=== PATIENT | female | born 1965 | race Caucasian/White ===

== ENCOUNTER → 2016-11-10 | Outpatient (CLI) | payer BC | LOC: KOH-I 11-09 09:00 | DX: R10.84 Generalized abdominal pain (principal); K58.1 Irritable bowel syndrome with constipation; R11.0 Nausea; K76.0 Fatty (change of) liver, not elsewhere classified | CPT/HCPCS: 76700 ==

== ENCOUNTER → 2016-12-14 | Outpatient (CLI) | payer BC | LOC: US 11:00 | DX: R93.5 Abnormal findings on diagnostic imaging of other abdominal regions, including retroperitoneum (principal) ==

== ENCOUNTER → 2020-07-17 | Outpatient (CLI) | payer BC ==
[~2020-07-17] MED LIST: IBUPROFEN800 MG PO
== END ==
LOC: KOH-I 13:55
DX: R06.02 Shortness of breath (principal)
CPT/HCPCS: 71046

== ENCOUNTER 2020-11-07 16:55 | Emergency (ER) | payer BC ==
[2020-11-07 18:30] LABS: HEMOGLOBIN 14.8 gm/dl (12.3-15.3); RED BLOOD COUNT 4.81 M/UL (4.00-5.10); WHITE BLOOD COUNT 10.3 K/UL (4.5-11.0)
[2020-11-07 18:41] LABS: BUN/CREATININE RATIO 16 (0-10)
[2020-11-07] MEDS ORDERED: IBUPROFEN800 MG PO (20:36)
== END 2020-11-07 20:45 | disposition home or self-care (01) ==
LOC: ER1 16:55
PROVIDERS: Preventive Medicine Occupational Medicine
DX: M94.0 Chondrocostal junction syndrome [Tietze] (principal); F17.210 Nicotine dependence, cigarettes, uncomplicated
CPT/HCPCS: 71045; 80053; 82550; 82553; 83874; 84484; 85025; 85652; 86140; 93005; 96374; 99285; J2060